=== PATIENT | female | born 1975 | race American Indian/Alaskan Native ===

== ENCOUNTER 2018-01-12 19:11 | Emergency (ER) | payer SELFPAY ==
[2018-01-12] MEDS ORDERED: TYLENOL PO ONE (19:20)
[2018-01-12] MEDS ORDERED: TYLENOL ONE (19:22)
[2018-01-12 19:30] VITALS: BP 162/97
--- NOTE | 2018-01-12 22:19 | Emergency Department Report ---
Abscess Boil HPI - HPI Chief Complaint: Skin/Abscess/Foreign Body Stated Complaint: BOIL IN EAR Time Seen by Provider: 01/12/18 20:55 Duration: >1 Week Location: Other (right ear) Severity: Moderate History: Yes Pain, Yes Purulent Drainage, Yes Previous History, No Fever, No Numbness, No Foreign Body, No Insect Bite HPI: 42-year-old -[place] female comes in with a boil in her right ear times one month. He states that it gets worse and gets better now it has yellow drainage and she has decreased hearing because of the blocking her ear canal. Patient denies any fever chills no nausea vomiting. Home Medications: Previous Rx's Medication Instructions Recorded Last Taken Type Cipro/Dexameth 0.3/0.1% [Ciprodex 4 drops OT BID 7 Days #1 bottle 01/12/18 Unknown Rx [facility]] Ibuprofen [Motrin 800 MG tab] 800 mg PO Q8HR PRN #30 tablet 01/12/18 Unknown Rx Allergies/Adverse Reactions: Allergies Allergy/AdvReac Type Severity Reaction Status Date / Time shellfish derived Allergy Hives Verified 01/12/18 19:27 tramadol Allergy Headache Verified 01/12/18 19:27 ED Review of Systems ROS: Stated complaint: BOIL IN EAR Other details as noted in HPI ENT: ear pain Musculoskeletal: denies: back pain, joint swelling, arthralgia Skin: lesions (in her right ear canal) Neurological: denies: headache, weakness, paresthesias Psychiatric: denies: anxiety, depression Hematological/Lymphatic: denies: easy bleeding, easy bruising ED Past Medical Hx - Past Medical History Previous Medical History?: Yes Hx Asthma: Yes - Surgical History Past Surgical History?: Yes Additional Surgical History: x3. tubal ligation - Social History Smoking Status: Never Smoker Substance Use Type: None - Medications Home Medications: Home Medications Medication Instructions Recorded Confirmed Last Taken Type Cipro/Dexameth 0.3/0.1% [Ciprodex 4 drops OT BID 7 Days #1 bottle 01/12/18 Unknown Rx [facility]] Ibuprofen [Motrin 800 MG tab] 800 mg PO Q8HR PRN #30 tablet 01/12/18 Unknown Rx ED Abscess Boil Physical Exam - Exam General: Vital signs noted. No distress. Alert and acting appropriately. Size: 1 cm Exam: Yes Tenderness, Yes Fluctuance, Yes Normal Neurologic Exam, Yes Normal Circulation, No Surrounding Cellulites/Erythema, No Lymphangitis, No Crepitation , No Heart Murmur Exam: Right ear 1 cm lesion that is tender to palpate and obscuring the ear canal I & D Note - I & D Note I & D Note: Right ear canal prepped with Betadine and draped with a sterile dressing using 19-gauge with 5 mL syringes to aspirate the lesion/boil. No discharge was able to be aspirated from the lesion but had blood return. This provider was able to this place ear wick into the canal. ED Course Vital Signs 01/12/18 01/12/18 19:23 19:25 Temperature 98.5 F Pulse Rate 85 Respiratory 18 18 Rate Blood Pressure 162/97 O2 Sat by Pulse 100 Oximetry Critical care attestation.: If time is entered above; I have spent that time in minutes in the direct care of this critically ill patient, excluding procedure time. ED Medical Decision Making - Medical Decision Making Patient has been evaluated by this provider in fast track. Discuss with patient that we will a incision and drained the bowl in her right ear canal. Was able to place an ear wick into the canal. Discussed with patient to remove it in 24 hours if she is not comfortable with that she can return back to the emergency room for a follow-up. Patient verbalized understanding discussed with patient that I will place her on antibiotics for external otitis prevention. Patient verbalized understanding ED Disposition Clinical Impression: Boil, ear Qualifiers: Laterality: right Qualified Code(s): H60.01 - Abscess of right external ear Disposition: TO HOME OR SELFCARE Is pt being admited?: No Does the pt Need Aspirin: No Condition: Stable Instructions: Furunculosis and Carbunculosis (ED) Additional Instructions: Please keep the area clean and dry. You may remove the ear wick in 24 hours or return back to the emergency room in 24 hours for us to remove. Please use eardrops after 30 ear wick is removed. Ibuprofen for pain management. Follow up with the ear nose and throat provider if symptoms persist or gets worse. Prescriptions: Cipro/Dexameth 0.3/0.1% [Ciprodex OTIC] 4 drops OT BID 7 Days #1 bottle Ibuprofen [Motrin 800 MG tab] 800 mg PO Q8HR PRN #30 tablet PRN Reason: Pain Referrals: ANN GILMAN MD [Primary Care Provider] - 3-5 Days [facility] - 3-5 Days Forms: Work/School Release Form(ED), Accompanied Note
== END 2018-01-12 22:29 | disposition home or self-care (01) ==
LOC: ED 19:11
DX: H60.01 Abscess of right external ear (principal); J45.909 Unspecified asthma, uncomplicated; Z88.6 Allergy status to analgesic agent; Z91.013 Allergy to seafood
CPT/HCPCS: 99282